=== PATIENT | female | born 1955 | race Caucasian/White ===

== ENCOUNTER 2016-06-02 09:21 | Day surgery (SDC) | payer OTHER ==
[2016-05-28 12:25] VITALS: BMI 32.0
[~2016-06-02] VITALS: Ht 154.9 cm; Wt 77.3 kg
--- NOTE | 2016-06-02 07:14 | HISTORY & PHYSICAL EXAMINATION ---
DATE OF ADMISSION: 06/02/2016 PROCEDURE: Left knee quad tendon repair. HISTORY OF PRESENT ILLNESS: Sierra is a pleasant 60-year-old female who presented to the office after sustaining a fall down the steps. She was initially seen in [place] [facility], placed in an immobilizer, x-rays were taken which were negative for any acute findings. After examination, the patient had significant weakness with knee extension, tenderness to palpation over the quadriceps insertion. After discussing further care, we will proceed with left knee quad tendon repair. PAST MEDICAL HISTORY: 1. Asthma. 2. COPD. 3. Anxiety. 4. GERD. 5. History of hiatal hernia. ALLERGIES: DARVON. CURRENT MEDICATIONS: 1. Fluoxetine 20 mg daily. 2. Naproxen 500 mg b.i.d. 3. Pramipexole 1 mg twice a day. 4. Zantac 150 mg daily. PAST SURGICAL HISTORY: Noncontributory to this hospital admission. SOCIAL HISTORY: Denies a history of alcohol consumption. Quit smoking a couple years ago. REVIEW OF SYSTEMS: Otherwise negative. Please see HPI for pertinent positives. PHYSICAL EXAMINATION: GENERAL: Benita 60-year-old female in no acute distress, alert and oriented x3. HEENT: Normocephalic, atraumatic. CARDIAC: Regular rate and rhythm. No murmurs or gallops appreciated. Resting pulse 80 beats per minute. LUNGS: Clear to auscultation without rales or wheeze bilaterally. ABDOMEN: Soft, nontender. Bowel sounds present. EXTREMITIES: Attention to her left lower extremity, she is neurovascularly intact. Calves are soft and nontender. DP pulse +2. She is unable to do a straight leg raise, with her knee flexed at bedside, she is unable to extend her knee. She is tender to palpation over the quadriceps insertion of her patella. Her knee is ligamentously stable with valgus and varus stress. There is no erythema or warmth. Has mild effusion. X-rays taken of her left knee show no acute bony pathology. IMPRESSION: 1. Left knee quad tear. 2. Past medical history as outlined above. PLAN: Further care discussed with the patient. At this point in time, we will place the patient into a knee immobilizer. She may weight bear as tolerated with the immobilizer on, she will require quadriceps tendon repair at [facility] on 06/02/2016 using Q-FIX. Postoperatively, she will remain weightbearing as tolerated with the brace locked in extension. She otherwise has no other questions or concerns.
[~2016-06-02 09:21] MED LIST: ACET-1256 PO; CEFAZOLIN 1000MG/55 ML D5W IV SCH; FLUO10CA48 PO; FLUO20CA35 PO; PRAM1TAB6 PO; PRLSR20 PO
[2016-06-02] MEDS ORDERED: MIDAZOLAM HCL 1 MG/ML 2ML VIAL ONE ×2 (10:19→13:37)
[2016-06-02] MEDS ORDERED: FENTANYL CITRATE INJ 50 MCG/1 ML 2 ML VIAL ONE ×2 (10:19→12:52)
[2016-06-02] MEDS ORDERED: LIDOCAINE HCL 2% 2 ML VIAL (20MG/ML) ONE (10:19)
[2016-06-02] MEDS ORDERED: PROPOFOL IV EMULSION 10 MG/ML 20 ML VIAL IV ONE ×2 (10:19→12:15)
--- NOTE | 2016-06-02 10:22 | History & Physical Bridge Note ---
H&P Re-Evaluation Bridge Note: I have examined the patient, reviewed the History & Physical and in the interval since the performance of the History & Physical I have noted the following changes of clinical significance: No changes noted
[2016-06-02 10:41] VITALS: BP 153/82; PULSE 59; TEMP 36.6; O2SAT 98; Ht 154.9 cm; Wt 77.3 kg
[2016-06-02 11:33] LABS: BUN/CREATININE RATIO 19.2 (10-20); CALCIUM 8.7 mg/dl (8.5-10.1); CREATININE 0.66 mg/dl (0.60-1.20); POTASSIUM 4.1 mmol/L (3.5-5.1)
[2016-06-02] MEDS ORDERED: BACITRACIN 50000 UNIT VIAL ONE (11:38)
[2016-06-02] MEDS ORDERED: ATROPINE SULFATE 0.1 MG/ML 5ML SYR IV PRN (11:45)
[2016-06-02] MEDS ORDERED: EpHEDrine SULFATE INJ 50 MG/ML AMP IV PRN (11:45)
[2016-06-02] MEDS ORDERED: HYDROmorphone INJ 2 MG/ML SYR/VIAL IV PRN (11:45)
[2016-06-02] MEDS ORDERED: PHENYLEPHRINE 100MCG/ML 5ML SYR IV PRN (11:45)
[2016-06-02] MEDS ORDERED: ONDANSETRON INJ 2 MG/ML 2 ML VIAL IV PRN ×2 (11:45→13:15)
[2016-06-02] MEDS ORDERED: SUCCINYLCHOLINE CHLORIDE 20 MG/ML 10 ML VIAL IV ONE (12:15)
[2016-06-02] MEDS ORDERED: ALBUTEROL HFA INHALER 8.5 GM INH ONE (12:15)
[2016-06-02] MEDS ORDERED: DEXAMETHASONE SOD INJ 4 MG/ML VIAL ONE ×2 (12:35)
[2016-06-02] MEDS ORDERED: ONDANSETRON INJ 2 MG/ML 2 ML VIAL ONE (12:35)
--- NOTE | 2016-06-02 12:44 | [facility] Post Operative Brief Note ---
Immediate Operative Summary Operative Date Jun 02, 2016. Pre-Operative Diagnosis Left Quadriceps Muscle Strain Post-Operative Diagnosis Same as preop Procedure(s) Performed Left Knee Quadricep Tendon Repair Surgeon Dr. Whitmore Whiteprinting Machine Operator Surgeon(s) Luis Vallejo PA-C Estimated Blood Loss 5 ml Findings complete rupture of quadriceps tendon at patella Specimens None per Surgeon Complication(s) None Disposition Recovery Room / PACU
[2016-06-02] MEDS ORDERED: SODIUM CHLORIDE 0.9% 1000ML 1,000 ML IV SCH (13:01)
--- NOTE | 2016-06-02 13:06 | OPERATIVE REPORT ---
DATE OF OPERATION: 06/02/2016 PREOPERATIVE DIAGNOSIS: Complete rupture, left quadriceps tendon patella. POSTOPERATIVE DIAGNOSIS: Same. PROCEDURE: Repair of left quadriceps tendon utilizing 2.8 Q-FIX anchors to patella. SURGEON: Dr. Whitmore. DIRECTOR TREASURER: Luis Vallejo PA-C, who was necessary for prepping, draping, retraction, wound closure of deep fascia, subQ, and skin and was necessary for the case. ESTIMATED BLOOD LOSS: 5 mL. COMPLICATIONS: None. TOURNIQUET TIME: 40 minutes. HISTORY OF PRESENT ILLNESS: The patient presents as a very pleasant 60-year-old white female being seen and evaluated after having had a complete quad rupture involving both medial and lateral retinaculum which was palpable with a large defect in the anterior aspect of her knee as well as an obvious extensor lag with inability to straighten the leg. The patient presents for surgical repair. OPERATION AND FINDINGS: PROCEDURE: After proper prepping and draping of the left lower extremity, a 6 cm incision was made over the region of the distal quadriceps, patella interface. The quadriceps tendon was evaluated and freed back to a bed of bleeding bone. The patellar tendon was debrided back to a bed of bleeding bone. Two double loaded 2.8 mm Q-FIX anchors were drilled into the superior aspect of the patella. The quadriceps tendon was repaired back to the patellar tendon. The fascia of the quadriceps tendon and patella was also repaired utilizing #0 FiberWire. The subQ was closed with 2-0 and 3-0 Vicryl, skin was closed with skin clips. A sterile compression dressing was placed as well as knee immobilizer with knee locked in full extension. Please note the knee was irrigated with copious amounts of sterile saline solution prior to closure. The patient was taken to recovery room in stable condition. I attest to the content of the Intraoperative Record and any orders documented therein. Any exceptio ns are noted below.
--- NOTE | 2016-06-02 13:07 | Discharge Instructions ---
Discharge Instructions Date of Service Jun 02, 2016. Visit Reason for Visit: Left Quadriceps Muscle Strain -Fascia & Tendon Discharge Discharge Diagnosis / Problem: left knee quad tendon repair Discharge Goals Goal(s): Decrease discomfort, Improve function, Increase independence Activity Recommendations Activity Limitations: as noted below Shower/Bathe: may shower/bathe in 3 days Weightbearing Status: Left weightbearing (as tolerated with immobilizer on) Anesthesia . Post Anesthesia Instructions: If you have had General Anesthesia or IV Sedation: * Do not drive today. * Resume driving when surgeon permits. * Do not make important decisions or sign legal documents today. * Call surgeon for: 1. Temperature elevations greater than 101 degrees F. 2. Uncontrollable pain. 3. Excessive bleeding. 4. Persistent nausea and vomiting. 5. Medication intolerance (nausea, vomiting or rash). * For nausea and vomiting use only clear liquids such as: tea, soda, bouillon until nausea subsides, then gradually increase diet as tolerated. * If you have any concerns or questions, call your surgeon's office. If physician is unavailable and it is an emergency, call 911 or go to the nearest emergency room. . Instructions / Follow-Up Instructions / Follow-Up ACTIVITY RECOMMENDATIONS: SELF CARE INSTRUCTIONS AFTER QUAD TENDON REPAIR A. You may need to continue a physical therapy program after discharge from the hospital. You should begin PT at a facility of your choice beginning 06/04/16 B. You may progress at your own pace from walking with a walker or crutches to a cane, you can weight bear as tolerated as long as brace is locked in extension. C. Make walking a part of your daily routine. Be up as much as comfortable with rest periods throughout the day. Rest with leg elevation is very important. Use the ice wrap frequently for the first 3-4 weeks. D. You may shower, no tub baths until cleared by your doctor. SPECIAL CARE INSTRUCTIONS: VERY IMPORTANT TO READ AND REVIEW A. There are a few signs you need to watch for after you are home. Call [facility] if you notice any of the followin. Increased severe knee pain. Some pain is expected especially when you exercise. 2. Increased swelling in your leg or knee; pain or swelling of the calf muscle in either lower leg. 3. Any fluid drainage from the incision. 4. Shortness of breath or chest pain. B. Please call [facility] at if you have any concerns or questions about your operation or recovery. The doctor or his nurse will return your call promptly. IMPORTANT: * REMEMBER TO TAKE ASPIRIN, 81 MG, TWICE DAILY FOR 4 WEEKS UNLESS OTHERWISE DIRECTED. THIS IS YOUR BLOOD THINNER. * CALL IF INCREASED PAIN, REDNESS, DRAINAGE OR FEVER GREATER THAT 101. FOLLOW UP VISIT: If appointment is not already scheduled: Please call [facility] to make a follow-up appointment for 2 weeks after your surgery at . YOU SHOULD CALL TO SCHEDULE YOUR FIRST PHYSICAL THERAPY APPOINTMENT FOR 06/04/16 AT A FACILITY OF YOUR CHOICE, PRESCRIPTION ATTACHED TO YOUR DISCHARGE INSTRUCTIONS. Diet Recommendations Recommended Home Diet: resume previous diet Procedures Procedures Performed: Left Knee Quadricep Tendon Repair Pending Studies Studies pending at discharge: no Medical Emergencies . Who to Call and When: Medical Emergencies: If at any time you feel your situation is an emergency, please call 911 immediately. . Non-Emergent Contact Non-Emergency issues call your: Primary Care Provider, Surgeon . . "Provider Documentation" section prepared by Luis Vallejo. . [place] Drug Monitoring Program Search Results: patient reviewed within database, no issues identified
[2016-06-02] MEDS ORDERED: ASPI1TAB83 PO (13:08)
[2016-06-02] MEDS ORDERED: OXYC-57 PO (13:08)
[2016-06-02] MEDS ORDERED: HYDROmorphone INJ 1 MG/ML SYR ONE ×2 (13:08→13:26)
[2016-06-02] MEDS ORDERED: OXYCODONE/ACETAMINOPHEN 5-325 TAB PO PRN ×2 (13:15)
[2016-06-02] MEDS ORDERED: NURSING VERBAL MED ORDER ONE (13:30)
[2016-06-02 14:10] VITALS: BP 157/76; PULSE 70; TEMP 36.6; O2SAT 94
--- NOTE | 2016-06-02 14:39 | Anesthesiology Progress Note ---
Anesthesia Post Op Note Date & Time Jun 02, 2016 at 14:38 Vital Signs Pain Intensity: 8 Vital Signs Past 12 Hours Date Time Temp Pulse Resp B/P Pulse Ox O2 Delivery O2 Flow Rate FiO2 06/02/16 14:00 36.5 68 15 155/87 99 Nasal Cannula 2 06/02/16 13:50 70 16 155/71 99 Nasal Cannula 2 06/02/16 13:40 69 16 159/71 99 Nasal Cannula 2 06/02/16 13:30 64 12 162/70 98 Nasal Cannula 2 06/02/16 13:20 62 14 176/85 100 Nasal Cannula 2 06/02/16 13:10 59 19 170/57 100 Mask 10 06/02/16 13:00 61 19 168/71 100 Mask 10 06/02/16 12:54 36.2 66 18 173/73 100 Mask 10 06/02/16 10:41 36.6 59 20 153/82 98 Room Air Notes Mental Status: alert / awake / arousable, participated in evaluation Pt Amnestic to Procedure: Yes Nausea / Vomiting: adequately controlled Pain: adequately controlled Airway Patency, RR, SpO2: stable & adequate BP & HR: stable & adequate Hydration State: stable & adequate Anesthetic Complications: no major complications apparent
[2016-06-02 14:40] VITALS: BP 117/77; PULSE 72; O2SAT 94
[2016-06-02 15:10] VITALS: BP 132/77; PULSE 73; TEMP 36.6; O2SAT 95
[2016-06-02 15:40] VITALS: BP 139/68; PULSE 65; TEMP 36.6; O2SAT 93
== END 2016-06-02 16:35 | disposition home or self-care (01) ==
LOC: C.ACU 09:21
PROVIDERS: ATTEND Orthopaedic Surgery
DX: S76.119A Strain of unspecified quadriceps muscle, fascia and tendon, initial encounter (principal); J44.9 Chronic obstructive pulmonary disease, unspecified; K21.9 Gastro-esophageal reflux disease without esophagitis; F41.9 Anxiety disorder, unspecified; Z87.891 Personal history of nicotine dependence; Z79.899 Other long term (current) drug therapy; X58.XXXA Exposure to other specified factors, initial encounter